=== PATIENT | male | born 1990 | race Caucasian/White ===

== ENCOUNTER 2023-02-17 16:33 | Observation (INO) | payer MEDICAID, SELFPAY ==
[2023-02-17 16:34] VITALS: BP 122/88; PULSE 78; RESP 16; TEMP 36.3; O2SAT 98; BMI 19.3
--- NOTE | 2023-02-17 18:19 | EDS_ITS ---
HPI History of Present Illness Chief Complaint: Substance Abuse Detail of Chief Complaint: Questing detox for fentanyl and cocaine abuse. Informant: patient Onset/Context/Timing Onset: Month(s) Context: Gradual Onset Timing: Continuous Current Severity: Mild Maximum Severity: Mild Narrative Narrative: 32-year-old male history of fentanyl and cocaine abuse. Used to do IV drugs as he has been since 2016. History of hep C. Denies recent illness. Patient requesting detox. Prior similar symptoms: Yes Recent Illness/Hospitalization: No PFSH PFSH Allergy/AdvReac Type Severity Reaction Status Date / Time fish derived Allergy Hives Verified 02/17/23 16:39 SEAFOOD Allergy Anaphylaxis Uncoded 02/17/23 16:39 ROS ROS ED ROS Narrative Denies recent illness. Review of Systems ROS Unobtainable: Denies due to encephalopathy Constitutional Constitutional ED: Denies chills or fever(s) Eyes Eyes: Denies blurry vision ENT ENT ED: Denies ear pain Cardiovascular Cardiovascular: Denies chest pain Respiratory/Chest Respiratory/Chest: Denies cough or dyspnea Gastrointestinal Gastrointestinal: Denies abdominal pain Genitourinary Genitourinary ED: Denies dysuria Musculoskeletal Musculoskeletal: Denies arthralgias Integumentary Denies abscess Neurologic Neurologic: Denies headache(s) Psychiatric Psychiatric: Denies anxiety or depression Endocrine Endocrinology: Denies cold intolerance Hematologic/Lymphatic Hematologic/Lymphatic: Denies easy bleeding Allergic/Immunologic Allergic/Immunologic ED: Denies mouth swelling EXAM Physical Exam Narrative Exam Narrative: 32-year-old no acute distress. Vital signs stable afebrile. HEENT exam poor dentition otherwise unremarkable. Neck nontender no lymphadenopathy. Lungs clear to auscultation. Heart regular rhythm no murmur. Abdomen soft nontender. Moving all 4 extremities. Calves nontender no edema. He is awake and alert. No focal motor deficits. Const Vital Signs: 02/17/23 16:34 Temperature 97.4 F L Temperature Source Temporal Pulse Rate 78 Respiratory Rate 16 Blood Pressure 122/88 H Blood Pressure Mean 99 Pulse Ox 98 Oxygen Delivery Method Room Air Positive well nourished and well developed; Negative for obese, cachectic, contractures or unkempt General Appearance ED: well developed and NAD; Negative for unkempt, cachectic, contractures or pallor Nutritional Appearance: Negative for cachectic or obese HEENT Reports moist mucous membranes; Denies dry mucous membranes Negative for atraumatic, trauma or tenderness Mouth ED: No dry mucous membranes Mouth: No dry mucous membranes Eyes PERRL and EOMs intact bilaterally General Eye ED: Negative for pale conjunctiva or scleral icterus Neck no lymphadenopathy, supple and no JVD Thyroid: Negative for tender Lymph Lymphatic: no lymphadenopathy noted; Negative for lymphadenopathy Chest Wall inspection of chest normal and palpation of chest normal Chest: Negative for other Resp normal respiratory effort and clear to auscultation bilaterally Effort and Inspection: Negative for retractions Auscultation: Negative for rales, rhonchi or wheezes Cardio regular rate, regular rhythm, S1 normal heart sound, S2 normal heart sound and no murmurs Rate: Negative for bradycardia or tachycardic GI soft to palpation, non-tender, non-distended and no masses Palpation: Negative for tender Bladder / Kidney Exam: No other Back/Spine no CVA tenderness General Back: Negative for CVA tenderness Cervical Spine: Negative for cervical spine tenderness Thoracic Spine / Upper Back: Negative for thoracic spinal tenderness Lumbar Spine / Lower Back: Negative for lumbar spinal tenderness Coccyx: Negative for swelling Extremity General Extremety ED: Negative for edema or tenderness General Extremity: Negative for edema Neuro oriented x3 and CN's II-XII intact bilaterally Sensorium / Orientation: alert, oriented to person and oriented to place Speech: speech normal Motor Exam: strength 5/5 throughout Psych mental status grossly normal and thought process normal Appearance: Negative for unkempt Attitude: No belligerent, No agitated and No aggressive Mood & Affect: Negative for depressed, anxious or tearful Skin General Skin Exam: Negative for jaundice or pallor Lesions: no lesions Rashes: no rashes Trauma: Negative for abrasion MDM MDM MDM Narrative Medical decision making narrative: 32-year-old male requesting detox for cocaine and fentanyl abuse. Denies recent illness. I will speak to hospitalist about admission for detox. History & Record Review Discussion w/independent historian: Patient Discharge Plan Triage Chief Complaint: Substance Abuse ED Provider: Rainer Goff Dx/Rx/DC Orders Clinical Impression: Cocaine abuse, History of hepatitis C, Fentanyl use disorder, mild, abuse Primary Care Provider: NOT,DEFINED Referrals: NOT,DEFINED [Primary Care Provider] - Disposition Disposition: Acute Care [facility]
[2023-02-17 18:51] LABS: Absolute Neutrophil Count 4.3 X10^3/uL (2.0-7.7); Basophil# 0.07 X10^3/uL; Basophil% 0.9 % (0-1); Eosinophil# 0.23 X10^3/uL; Eosinophils% 3.1 % (0-5); Hematocrit 42.3 % (40-54); Hemoglobin 13.4 g/dL (13.0-16.5); Lymphocyte % 29.5 % (19-41); Mean Corp Hgb Conc 31.7 g/dL (32-36); Mean Corpuscular Hgb 30.9 pg (27.0-32.0); Mean Corpuscular Volume 97.5 fL (80-94); Mean Platelet Vol. 8.9 fl (6.2-12.0); Monocyte# 0.63 X10^3/uL; Monocyte% 8.4 % (0-10); NRBC Flagged by Analyzer 0 % (0-5); Neutrophil # 4.31 X10^3/uL (2.7-7.7); Neutrophil % 57.8 % (47-70); Platelet Count 244 K/mm3 (150-450); RBC Distribution Width CV 12.3 % (11.6-14.6); RBC Distribution Width SD 44.2 fl (35.1-43.9); Red Blood Count 4.34 M/mm3 (4.6-6.2); White Blood Count 7.5 K/mm3 (4.4-11.0)
[2023-02-17 19:06] LABS: AST(SGOT) 47 U/L (15-37); Alanine Aminotransfer ALT/SGPT 110 U/L (16-61); Albumin, Serum 3.7 g/dL (3.2-5.0); Alkaline Phosphatase 73 U/L (45-117); Anion Gap 3 (5-15); BUN 13 mg/dL (7-18); BUN/Creat Ratio 17.8 RATIO (10-20); Calcium,Total 8.9 mg/dL (8.5-10.1); Chloride 107 mmol/L (98-107); Creatinine, Serum 0.73 mg/dL (0.70-1.30); EST Glomerular Filtration Rate 131 mL/min (>60); Est Glom Filt Rate - Afr Amer 159 mL/min (>60); Estimated Creatinine Clearance 128.35 ml/min; Globulin 3.6 g/dL (2.2-4.2); Glucose 97 mg/dL (74-106); Potassium 3.8 mmol/L (3.5-5.1); Protein, Total 7.3 g/dL (6.4-8.2); Sodium Level 141 mmol/L (136-145)
[2023-02-17 19:07] LABS: Alcohol, Blood (Medical)-Serum < 3.0 mg/dL
[2023-02-17 19:10] LABS: Amphetamine Urine VISTA NEGATIVE (<1000 ng/mL); Barbiturate Urine VISTA NEGATIVE (< 200 ng/mL); Benzodiazepine Urine VISTA NEGATIVE (< 200 ng/mL); Cocaine Urine VISTA POSITIVE (< 300 ng/mL); Ecstacy Urine VISTA POSITIVE (< 500 ng/mL); Methadone Urine VISTA NEGATIVE (< 300 ng/mL); PCP Urine VISTA NEGATIVE (< 25 ng/mL); THC Urine VISTA POSITIVE (< 50 ng/mL); Vista UDS pH Range 6
[2023-02-17 19:14] VITALS: BP 100/66; PULSE 58; RESP 18; TEMP 37.1; O2SAT 100
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
[2023-02-17 19:35] VITALS: BMI 19.1
[2023-02-17 20:00] VITALS: BP 122/78; PULSE 62; RESP 16; TEMP 36.5; O2SAT 100
[2023-02-17] MEDS: levETIRAcetam 500 MG Tablet PO (22:23)
[2023-02-18] VITALS (7 sets, daily range): BP systolic 101–137; BP diastolic 68–95; PULSE 58–81; RESP 15–18; TEMP 36.1–36.9; O2SAT 95–100
[2023-02-18] MEDS: Gabapentin 300 MG Capsule 600 MG PO ×4 (00:02→18:11)
[2023-02-18] MEDS: Methocarbamol 750 MG Tablet 1500 MG PO ×2 (00:39→18:22)
[2023-02-18] MEDS: Buprenorphine HCl 2 MG TAB.SUBL SL ×2 (00:39→08:36)
[2023-02-18] MEDS: traZODone 100 MG Tablet PO (00:39)
--- NOTE | 2023-02-18 08:31 | PN.HOSP_ITS ---
Reason for Visit Reason for Visit: Opiate detox Subjective Subjective Mr. Banks is a 32-year-old white male who presented to the emergency department at [facility] on 10/22/2022 requesting detox from fentanyl. He also admits to cocaine use. His last IV drug use was in 2016 and he has a history of hepatitis C but reports he is HIV negative. He currently snorts or inhales fentanyl and his last use was on the afternoon of admission at around 1 PM. His also presented with him and between the 2 of them they state that they go through about a gram of fentanyl daily. Eitel signs on presentation were unremarkable. CBC on presentation was unremarkable. Chemistry panel on presentation was unremarkable other than mild transaminitis c onsistent with his history of hepatitis C. Toxicology screen was positive for opiates, MDMA, cocaine, and cannabinoids. Patient sleeping soundly at the time of my evaluation Objective Data Objective Data Vital Signs: Vital Signs Temp Pulse Resp BP Pulse Ox O2 Del Method 97.5 F L 60 16 111/78 100 Room Air 02/18/23 06:31 02/18/23 06:31 02/18/23 06:31 02/18/23 06:31 02/18/23 06:31 02/18/23 06:31 Oxygen Delivery Method Room Air Weight: 62 kg Body Mass Index (BMI) 19.1 Intake & Output: Intake and Output for Last 24 Hours 02/16/23 02/17/23 02/18/23 23:59 23:59 23:59 Intake Total 420 / 420 Balance 420 / 420 Lab / Micro Data 02/17/23 18:40 02/17/23 18:40 Labs: Laboratory Results - last 24 hr 02/17/23 18:40: WBC 7.5, RBC 4.34 L, Hgb 13.4, Hct 42.3, MCV 97.5 H, MCH 30.9, MCHC 31.7 L, RDW Std Deviation 44.2 H, RDW Coeff of Janes 12.3, Plt Count 244, MPV 8.9, Immature Gran % (Auto) 0.300, Neut % (Auto) 57.8, Lymph % (Auto) 29.5, [place] % (Auto) 8.4, Eos % (Auto) 3.1, Baso % (Auto) 0.9, Absolute Neuts (auto) 4.3, Absolute Lymphs (auto) 2.20, Nucleated RBC % 0, Sodium 141, Potassium 3.8, Chloride 107, Carbon Dioxide 31.0, Anion Gap 3 L, BUN 13, Creatinine 0.73, Estim Creat Clear Calc 128.35, Est GFR (MDRD) Af Amer 159, Est GFR (MDRD) Non-Af 131, BUN/Creatinine Ratio 17.8, Glucose 97, Calcium 8.9, Total Bilirubin 0.30, AST 47 H, ALT 110 H, Alkaline Phosphatase 73, Total Protein 7.3, Albumin 3.7, Globulin 3.6, Albumin/Globulin Ratio 1.0, Urine Opiates Screen POSITIVE H, Urine Methadone Screen NEGATIVE, Ur Barbiturates Screen NEGATIVE, Ur Phencyclidine Scrn NEGATIVE, Ur Amphetamines Screen NEGATIVE, MDMA (Ecstasy) Screen POSITIVE H , U Benzodiazepines Scrn NEGATIVE, Urine Cocaine Screen POSITIVE H, U Cannabinoids Screen POSITIVE H, Ur Drug Screen Comment , Ethyl Alcohol < 3.0 Physical Exam Const no apparent distress Constitutional Narrative: Middle-aged, white male, sleeping soundly, appears comfortable, nontoxic HEENT head/scalp atraumatic and moist oral mucous membranes Head and Scalp: normocephalic Extremity no clubbing, cyanosis or edema Extremity Narrative: Pedal pulses are 2+ Assessment & Plan Assessment/Plan (1) History of hepatitis C: (2) Cocaine abuse: (3) Opiate withdrawal: PLAN: Plan Acute opiate withdrawal -Subutex taper per COWS protocol -Supportive medications for symptom management -180 consultation for assistance with discharge planning Polysubstance abuse -Toxicology screen is positive for opiates, MDMA, cocaine, and cannabinoids -Recommend cessation -We will do detox for opiates History of hepatitis C -Patient with transaminitis that is mild -Once sober recommend outpatient follow-up for treatment of his hepatitis C as it does appear he is likely a carrier and increases his risk for hepatocellular carcinoma and cirrhosis of the liver Seizure disorder status post TBI -Continue home gabapentin and Keppra DVT prophylaxis -Early and frequent ambulation -Risk is low CODE STATUS -Full code Charges/Coding Visit Charges Inpatient E&M: 20855 Subs Hosp L1
[2023-02-18] MEDS: levETIRAcetam 500 MG Tablet PO ×2 (10:25→21:35)
--- NOTE | 2023-02-18 10:44 | CASEMGMT ---
Patient expressed concern with transportation, utilities, and food. SW went to patient's room to give him resources, however patient was sleeping. SW will check back. Mary FRANKLIN
--- NOTE | 2023-02-18 11:49 | ADDICTION ---
This copy writer met with PT to conduct ASAM, MSE, AUDIT, DUDIT assessments and to plan for d/c. PT A+Ox4 and participated actively. All assessments completed and placed in PT's chart. PT plans to f/u with [facility] for follow-up Suboxone/MAT treatment services. [facility] will transport once discharged.
--- NOTE | 2023-02-18 14:30 | CHAPLAIN ---
Type of Pastoral Visit _x__ Initial Visit ___ Follow-up Visit ___ On-call Visit ___ General Patient Visit ___ Spiritual Assessment ___ Family Conference ___ Bereavement ___ Rapid Response ___ Code Blue ___ Other (describe below) Pastoral Care Referral From _x__ Patient ___ Family ___ Nurse ___ Physician ___ Vice President Risk Management ___ Cutter Aluminum Sheet ___ Other (describe below) Sacrament/Intervention _x__ Active listening ___ Anointing ___ Spiritism ___ Bereavement ___ Communion _x__ Vanessa exploration ___ ___ Life review _x__ Prayer ___ Reconciliation ___ Sacrament of Sick _x__ Supportive presence ___ Wedding ___ Other (describe below) Pastoral Comments patient was sleeping but was able to awaken with his name; patient states his is also admitted for detox; no information given about his ; pt speaks of his 20+ year drug use but has had periods of being clean; pt states that he does not get along well with his family and so his main support is from his who is also seeking detox at this time; pt has been to [facility] [place] and will plan to return to that as well as other groups in his area; pt would like to leave his living situation due to much drug activity in the neighborhood, and to change his phone number; pt is open to spiritual care support and prayer was welcomed; pt is open to follow up visits during his stay
[2023-02-18] MEDS: cloNIDine HCl 0.1 MG Tablet PO (18:22)
[2023-02-18] MEDS: Ondansetron 8 MG Tablet PO (18:22)
[2023-02-19] VITALS (7 sets, daily range): BP systolic 121–138; BP diastolic 91–100; PULSE 50–62; RESP 14–17; TEMP 36.6–37.3; O2SAT 97–100
[2023-02-19] MEDS: Buprenorphine HCl 2 MG TAB.SUBL SL ×3 (00:56→17:41)
[2023-02-19] MEDS: Gabapentin 300 MG Capsule 600 MG PO ×4 (00:56→17:41)
[2023-02-19] MEDS: Methocarbamol 750 MG Tablet 1500 MG PO (03:38)
[2023-02-19] MEDS: hydrOXYzine PAM 25 MG Capsule 50 MG PO ×2 (03:38→20:48)
[2023-02-19] MEDS: Ondansetron 8 MG Tablet PO ×2 (03:38→20:48)
[2023-02-19] MEDS: cloNIDine HCl 0.1 MG Tablet PO (06:21)
[2023-02-19] MEDS: levETIRAcetam 500 MG Tablet PO ×2 (09:33→20:48)
--- NOTE | 2023-02-19 13:34 | PN.HOSP_ITS ---
Reason for Visit Reason for Visit: Opiate detox Subjective Subjective Patient denies any significant issues. States he is having some mild diarrhea denies any myalgias, nausea, or vomiting. Mild anxiety. Denies any current needs. Objective Data Objective Data Vital Signs: Vital Signs Temp Pulse Resp BP Pulse Ox O2 Del Method 97.8 F 58 L 14 129/97 H 100 Room Air 02/19/23 09:00 02/19/23 09:00 02/19/23 09:00 02/19/23 09:00 02/19/23 09:00 02/19/23 09:03 Oxygen Delivery Method Room Air Weight: 62 kg Body Mass Index (BMI) 19.1 Intake & Output: Intake and Output for Last 24 Hours 02/17/23 02/18/23 02/19/23 23:59 23:59 23:59 Intake Total 1610 / 1610 Balance 1610 / 1610 Lab / Micro Data 02/17/23 18:40 02/17/23 18:40 Physical Exam Const alert, oriented x3 and no apparent distress Constitutional Narrative: Thin, middle-aged, white male, lying in bed but awakens easily, appears comfortable, nontoxic HEENT head/scalp atraumatic and moist oral mucous membranes Extremity no clubbing, cyanosis or edema Extremity Narrative: Pedal pulses are 2+ Neuro oriented x3, moves all extremities and no focal motor deficits Assessment & Plan Assessment/Plan (1) History of hepatitis C: (2) Cocaine abuse: (3) Opiate withdrawal: PLAN: Plan Acute opiate withdrawal -Subutex taper per COWS protocol -Supportive medications for symptom management -180 has evaluated the patient and he will follow-up with [facility] for S uboxone/MAT treatment services Polysubstance abuse -Toxicology screen is positive for opiates, MDMA, cocaine, and cannabinoids -Recommend cessation History of hepatitis C -Patient with transaminitis that is mild -Once sober recommend outpatient follow-up for treatment of his hepatitis C as it does appear he is likely a carrier and increases his risk for hepatocellular carcinoma and cirrhosis of the liver -Viral load is pending Seizure disorder status post TBI -Continue home gabapentin and Keppra DVT prophylaxis -Early and frequent ambulation -Risk is low CODE STATUS -Full code Charges/Coding Visit Charges Inpatient E&M: 34265 Subs Hosp L1
[2023-02-19] MEDS: traZODone 100 MG Tablet PO (20:48)
[2023-02-20] MEDS: Buprenorphine HCl 2 MG TAB.SUBL SL ×2 (00:26→11:21)
[2023-02-20] MEDS: Methocarbamol 750 MG Tablet 1500 MG PO (00:29)
[2023-02-20] MEDS: Gabapentin 300 MG Capsule 600 MG PO ×2 (00:30→11:21)
[2023-02-20] MEDS: Topiramate 50 MG Tablet PO (01:56)
[2023-02-20 02:00] VITALS: BP 132/88; PULSE 52; RESP 16; TEMP 36.7; O2SAT 97
[2023-02-20] MEDS: QUEtiapine 25 MG Tablet 50 MG PO (02:44)
[2023-02-20 08:05] VITALS: BP 132/94; PULSE 62; RESP 18; TEMP 36.6; O2SAT 94
--- NOTE | 2023-02-20 09:45 | DCINST_ITS ---
Discharge Instructions Diet Discharge Diet: No restrictions Activity Discharge Activity: Return to Normal Activity Dressing / Incision Call your doctor if you observe: Fever of 101 or Higher, Shortness of breath, Dizziness, Fainting spells, Swelling in the ankles, Chest pain and Increased palpitations (irregular heartbeat) Follow Up Care Test Results: Test results from this visit will be discussed in further detail at your follow- up appointment, if applicable. Discharge Plan Admission Admit Date/Time: 02/17/23 19:28 Attending Provider: Damion Lee Primary Care Provider: NISHA MCDUFFIE Consulting Providers: Damion Lee; Michelle Khan Discharge Orders/Prescriptions Prescriptions: Continued levetiracetam 500 mg tablet 500 mg PO Q12H gabapentin 300 mg capsule 600 mg PO Q6H Patient Comments: TAKE 1 CAPSULE BY MOUTH TWICE A DAY topiramate 50 mg tablet 50 mg PO Q12H PRN (Reason: migraine headache) Referrals / Follow Up: NISHA MCDUFFIE [Other] NOT,DEFINED [Non-Staff] - Disposition Disposition (needs filled in before D/C Order can be placed): Home, Self Care
[2023-02-20] MEDS: levETIRAcetam 500 MG Tablet PO (09:53)
--- NOTE | 2023-02-20 10:17 | PHA.DC.MR.R ---
Pharmacy [place] Med Reconciliation Pharmacy Service has performed discharge medication reconciliation for this patient. No new medications at time of discharge. Medications reviewed are from previously reported home medications. The patient's discharge medication list was reviewed for discrepancies and discrepancies were resolved. Medications at Discharge Home Medications gabapentin 300 mg capsule 600 mg PO Q6H 02/17/23 levetiracetam 500 mg tablet 500 mg PO Q12H 02/17/23 topiramate 50 mg tablet 50 mg PO Q12H PRN migraine headache 02/17/23
[2023-02-20] MEDS: Acetaminophen 500 MG Tablet PO (11:28)
[2023-02-20 12:41] VITALS: BP 136/96; PULSE 63; RESP 18; TEMP 36.6; O2SAT 98
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
--- NOTE | 2023-02-20 13:55 | CASEMGMT ---
Patient was supposed to be picked up by [facility] at 1p. It is now almost 2p and they are not here. KATHERINE attempted to call Zak cannon fire direction specialist, but she was not available. KATHERINE called [facility] and spoke with Evette who said she had to use the vehicle so someone will be here to supervisor opening and picking patient in an hour. SW let patient know this information. Patient was upset as he would have to wait an hour to see his . Patient said he wants to wait outside so he can text his so she can sit and wait outside with him. SW asked patient if he was still going to wait on [facility] and patient said he was going to wait on them. KATHERINE notified RN. Mary Linares RING ROLLING MACHINE OPERATORRichard FRANKLIN
--- NOTE | 2023-02-20 14:56 | NURSING ---
Reviewed charting with Ana Garcias RN
== END 2023-02-20 13:55 | disposition home or self-care (01) ==
LOC: ED 18:25 → PCU 02-18 06:44
PROVIDERS: Admitting Provider Family Medicine; Emergency Provider Emergency Medicine; Visit Provider Family Medicine
DX: F11.23 Opioid dependence with withdrawal (principal); F14.10 Cocaine abuse, uncomplicated; G40.909 Epilepsy, unspecified, not intractable, without status epilepticus; F17.210 Nicotine dependence, cigarettes, uncomplicated; B19.20 Unspecified viral hepatitis C without hepatic coma; Z79.899 Other long term (current) drug therapy
CPT/HCPCS: H0012 ×2; 80053; 80307; 82077; 85025; 99283; 99406